=== PATIENT | male | born 1985 ===

== ENCOUNTER 2018-09-27 09:28 | Outpatient (CLI) | payer OTHER | END 2018-09-27 09:29 | disposition home or self-care (01) | LOC: C.PAT 09:28 | DX: M51.27 Other intervertebral disc displacement, lumbosacral region (principal); M54.5 Low back pain; M54.16 Radiculopathy, lumbar region ==

== ENCOUNTER 2018-10-18 07:30 | Inpatient (IN) | payer OTHER ==
[2018-10-18] MEDS ORDERED: Absorbable Gelatin Sponge Size 100 ONE (10:04)
[2018-10-18] MEDS ORDERED: Bupivacaine-Epi 0.5%-1:200,000 PF Inj ONE (10:05)
[2018-10-18] MEDS ORDERED: Bacitracin Ointment 30 GM TUBE ONE (10:05)
[2018-10-18] MEDS ORDERED: Thrombin Topical 5,000 Int Units Spray Kit ONE (10:05)
[2018-10-18] MEDS ORDERED: Lidocaine/Epinephrine 1% 1:100000 10 ML IJ ONE (10:05)
[2018-10-18] MEDS ORDERED: ceFAZolin 1 gm in NS 2 GM/200 ML BAG IVPB ONE (10:06)
[2018-10-18] MEDS ORDERED: Bacitracin 150,000 UNIT in Sodium Chloride 0.9% Irrig 3,000 ML IR SCH (10:11)
[2018-10-18] MEDS ORDERED: Propofol 10 mg/ml 2,000 MG/200 ML VIAL ONE (11:13)
[2018-10-18] MEDS ORDERED: Midazolam 2 MG/2 ML VIAL ONE (11:30)
[2018-10-18] MEDS ORDERED: Propofol 10 mg/ml Inj (20 ML) ONE (11:30)
[2018-10-18] MEDS ORDERED: Succinylcholine Chloride 20 mg/ml Syr (5 ml) IV ONE (11:33)
[2018-10-18] MEDS ORDERED: Sodium Chloride 0.9% 20 ML IV ONE (12:17)
[2018-10-18] MEDS: Bupivacaine Liposomal Inj 20 ml INJ ONE ×2 (13:00→15:08)
[2018-10-18] MEDS: Bupivacaine HCl 0.5% PF (10 ml) Inj ONE ×2 (13:00→15:08)
[2018-10-18] MEDS ORDERED: Rocuronium 10 mg/ml (5 ml) ONE (13:55)
[2018-10-18] MEDS ORDERED: Propofol 10 mg/ml 1,000 MG/100 ML VIAL ONE (14:40)
[2018-10-18] MEDS ORDERED: Neostigmine 1:1000 (1 mg/ml) Inj ONE (15:34)
[2018-10-18] MEDS ORDERED: Naloxone 0.4 mg/ml Inj (Adult) IVP PRN (16:01)
[2018-10-18] MEDS: HYDROmorphone 0.5 mg/0.5 ml ISec IVP PRN ×4 (16:07→17:24)
[2018-10-18] MEDS ORDERED: Lactated Ringer's 1,000 ML IV ONE (17:30)
[2018-10-18] MEDS: Potassium Ch 20mEq in D5-1/2NS 1,000 ML IV SCH (18:45)
[2018-10-19 01:57] VITALS: RESP 20
[2018-10-19] MEDS: Potassium Ch 20mEq in D5-1/2NS 1,000 ML IV SCH ×3 (05:25→22:00)
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
--- NOTE | 2018-10-19 09:46 | CP.PCM.PN ---
Subjective - Date & Time of Evaluation Date of Evaluation: 10/19/18 Time of Evaluation: 09:43 - Subjective Subjective: doing well has post op back pain good st no numbness in legs will change to oral meds Objective - Vital Signs/Intake and Output Vital Signs (last 24 hours): Temp Pulse Resp BP Pulse Ox 98.8 F 114 H 20 124/78 97 10/19/18 09:21 10/19/18 09:21 10/19/18 09:21 10/19/18 09:21 10/19/18 09:21 Intake and Output: 10/19/18 10/19/18 06:59 18:59 Intake Total 1160 Output Total 1200 Balance -40 - Medications Medications: Current Medications Acetaminophen (Tylenol 325mg Tab) 650 mg PO Q6 PRN PRN Reason: Fever >100.4 F Docusate Sodium (Colace) 100 mg PO BID [facility] Last Admin: 10/18/18 19:06 Dose: Not Given Hydromorphone/Sodium Chloride (Dilaudid Photographic Process Attendant) 6 mg IV Q4H PRN; Protocol PRN Reason: Pain, moderate (4-7) Last Admin: 10/19/18 06:51 Dose: 6 mg Potassium Chloride/Dextrose/Sod Cl (Potassium Chl 20 Meq In D5-1/2ns) 1,000 mls @ 100 mls/hr IV .Q10H [facility] Last Admin: 10/19/18 05:25 Dose: 100 mls/hr Influenza Virus Vaccine (Flucelvax Quad [id number] Syr) 60 mcg IM .ONCE ONE Stop: 10/20/18 10:01 Naloxone HCl (Narcan) 0.1 mg IVP Q2M PRN PRN Reason: apnea Pneumococcal Polyvalent Vaccine (Pneumovax 23 Vaccine) 0.5 ml IM .ONCE ONE Stop: 10/20/18 10:01
[2018-10-19] MEDS ORDERED: oxyCODONE 20 mg ER Tab (oxyCONTIN) PO SCH ×2 (10:00→18:00)
--- NOTE | 2018-10-19 13:03 | RAD ---
Date of service: 10/18/2018 PROCEDURE: Intraoperative Fluoroscopy. HISTORY: L5/S1 DISC DEGENERATION FINDINGS: Fluoroscopic assistance was provided for lumbar spinal surgery. Please refer to the operative report from LISSA Patino.
[2018-10-19] MEDS ORDERED: Simethicone 80 mg Chewtab PO ONE (15:30)
[2018-10-19] MEDS: Oxycodone/Acetaminophen 5/325 mg Tab PO PRN ×2 (16:53→21:29)
[2018-10-19] MEDS: oxyCODONE 20 mg ER Tab (oxyCONTIN) PO SCH (18:24)
[2018-10-20] MEDS: Potassium Ch 20mEq in D5-1/2NS 1,000 ML IV SCH ×3 (02:00→18:04)
[2018-10-20] MEDS: oxyCODONE 20 mg ER Tab (oxyCONTIN) PO SCH ×2 (06:04→18:01)
[2018-10-20] MEDS ORDERED: Pneumococcal 23-Valent Vaccine IM ONE (10:00)
[2018-10-20] MEDS ORDERED: Influenza Vaccine 60 mcg/0.5 mL SYR (4YR UP) IM ONE (10:00)
[2018-10-20] MEDS: Oxycodone/Acetaminophen 5/325 mg Tab PO PRN ×2 (12:40→22:48)
[2018-10-20] MEDS ORDERED: Magnesium Hydroxide Susp 30 ml UD PO ONE (13:06)
--- NOTE | 2018-10-20 13:08 | CP.PCM.PN ---
Subjective - Date & Time of Evaluation Date of Evaluation: 10/20/18 Time of Evaluation: 13:06 - Subjective Subjective: POD 2 doing well amb with PT 5/5 throughout sens intact MOM P awaiting t to rehab Objective - Vital Signs/Intake and Output Vital Signs (last 24 hours): Temp Pulse Resp BP Pulse Ox 98.3 F 96 H 20 105/67 97 10/20/18 09:10 10/20/18 09:10 10/20/18 09:10 10/20/18 09:10 10/20/18 09:10 Intake and Output: 10/20/18 10/20/18 06:59 18:59 Intake Total 1200 Balance 1200 - Medications Medications: Current Medications Acetaminophen (Tylenol 325mg Tab) 650 mg PO Q6 PRN PRN Reason: Fever >100.4 F Last Admin: 10/20/18 01:56 Dose: 650 mg Docusate Sodium (Colace) 100 mg PO BID [facility] Last Admin: 10/20/18 10:38 Dose: 100 mg Hydromorphone/Sodium Chloride (Dilaudid Pump Station Operator) 6 mg IV Q4H PRN; Protocol PRN Reason: Pain, moderate (4-7) Last Admin: 10/19/18 06:51 Dose: 6 mg Potassium Chloride/Dextrose/Sod Cl (Potassium Chl 20 Meq In D5-1/2ns) 1,000 mls @ 100 mls/hr IV .Q10H [facility] Last Admin: 10/20/18 08:33 Dose: Not Given Magnesium Hydroxide (Milk Of Magnesia) 30 ml PO ONCE ONE Stop: 10/20/18 13:07 Naloxone HCl (Narcan) 0.1 mg IVP Q2M PRN PRN Reason: apnea Oxycodone HCl (Oxycontin Extended Release Tab) 20 mg PO Q12H [facility] Last Admin: 10/20/18 06:04 Dose: 20 mg Oxycodone/Acetaminophen (Percocet 5/325 Mg Tab) 1 tab PO Q4H PRN PRN Reason: Pain, Mild (1-3) Stop: 10/22/18 09:48 Last Admin: 10/20/18 12:40 Dose: 1 tab
[2018-10-21] MEDS: oxyCODONE 20 mg ER Tab (oxyCONTIN) PO SCH ×3 (05:55→18:52)
--- NOTE | 2018-10-21 19:41 | CP.PCM.PN ---
Subjective - Date & Time of Evaluation Date of Evaluation: 10/21/18 Time of Evaluation: 19:40 - Subjective Subjective: doing well no sig complaints neuro stable dsg c and d awaiting trans to rehab (Tue) Objective - Vital Signs/Intake and Output Vital Signs (last 24 hours): Temp Pulse Resp BP Pulse Ox 99.5 F 99 H 20 132/84 98 10/21/18 15:55 10/21/18 15:55 10/21/18 15:55 10/21/18 15:55 10/21/18 15:55 - Medications Medications: Current Medications Acetaminophen (Tylenol 325mg Tab) 650 mg PO Q6 PRN PRN Reason: Fever >100.4 F Last Admin: 10/20/18 01:56 Dose: 650 mg Docusate Sodium (Colace) 100 mg PO BID [facility] Last Admin: 10/21/18 18:52 Dose: 100 mg Naloxone HCl (Narcan) 0.1 mg IVP Q2M PRN PRN Reason: apnea Oxycodone HCl (Oxycontin Extended Release Tab) 20 mg PO Q12H [facility] Last Admin: 10/21/18 18:52 Dose: 20 mg Oxycodone/Acetaminophen (Percocet 5/325 Mg Tab) 1 tab PO Q4H PRN PRN Reason: Pain, Mild (1-3) Stop: 10/22/18 09:48 Last Admin: 10/20/18 22:48 Dose: 1 tab
[2018-10-21] MEDS: Oxycodone/Acetaminophen 5/325 mg Tab PO PRN (21:19)
[2018-10-22] MEDS: oxyCODONE 20 mg ER Tab (oxyCONTIN) PO SCH ×2 (05:57→18:22)
[2018-10-23] MEDS: oxyCODONE 20 mg ER Tab (oxyCONTIN) PO SCH ×2 (05:32→17:45)
--- NOTE | 2018-10-23 11:18 | CP.PCM.PN ---
Subjective - Date & Time of Evaluation Date of Evaluation: 10/23/18 Time of Evaluation: 11:17 - Subjective Subjective: SPINE - POD #5 Pt OOB in chair. No complaints. VSS Afeb. Neuro grossly intact Plan: Rehab transfer when bed available Objective - Vital Signs/Intake and Output Vital Signs (last 24 hours): Temp Pulse Resp BP Pulse Ox 98.8 F 103 H 20 117/70 99 10/23/18 09:11 10/23/18 09:11 10/23/18 09:11 10/23/18 09:11 10/23/18 09:11 Intake and Output: 10/23/18 10/23/18 06:59 18:59 Output Total 700 Balance -700 - Medications Medications: Current Medications Acetaminophen (Tylenol 325mg Tab) 650 mg PO Q6 PRN PRN Reason: Fever >100.4 F Last Admin: 10/20/18 01:56 Dose: 650 mg Docusate Sodium (Colace) 100 mg PO BID [facility] Last Admin: 10/23/18 10:01 Dose: 100 mg Naloxone HCl (Narcan) 0.1 mg IVP Q2M PRN PRN Reason: apnea Oxycodone HCl (Oxycontin Extended Release Tab) 20 mg PO Q12H [facility] Last Admin: 10/23/18 05:32 Dose: 20 mg
[2018-10-23] MEDS ORDERED: oxyCODONE 20 mg ER Tab (oxyCONTIN) PO SCH (17:43)
[2018-10-24 01:45] VITALS: O2SAT 98
[2018-10-24] MEDS ORDERED: oxyCODONE 20 mg ER Tab (oxyCONTIN) PO SCH (06:00)
[2018-10-24] MEDS: oxyCODONE 20 mg ER Tab (oxyCONTIN) PO SCH ×2 (06:27→17:13)
[2018-10-24 16:23] VITALS: BP 150/97; PULSE 87; TEMP 98.3
--- NOTE | 2018-10-30 07:41 | OP ---
PROCEDURE DATE: 10/18/2018 PREOPERATIVE DIAGNOSIS: Disk derangement, L5-S1. POSTOPERATIVE DIAGNOSIS: Disk derangement, L5-S1. OPERATION: 1. Posterior lumbar interbody and lateral fusion, L5-S1. 2. Use of nonsegmental spinal instrumentation. 3. Intervertebral devices. 4. Use of autograft by means of bone marrow aspiration. SURGEON: Titi Silverman MD CO-SURGEON: Tunde Mackenzie MD ANESTHESIA: General endotracheal tube intubation. DESCRIPTION OF PROCEDURE: The patient was brought to the operating room, and general anesthesia was achieved. Intravenous antibiotics were administered, and spinal cord monitor leads were placed throughout the patient's body. Real-time monitoring was done by a desktop technician in the room. Remote monitoring was done by a physician as well. Sequential compression boots were placed to each of the patient's legs. Once the antibiotics were administered, a Adhikari catheter was inserted. The patient was then gently transferred onto the operating table and placed prone on a Edwardo frame, keeping his abdomen free from pressure anteriorly. Care was taken to protect the elbows and knees from pressure points. A sterile drape was used to seal off the patient's perineal region from the operative field. His back was sterilely prepped and draped. The level of the incision was noted under fluoroscopy and infiltrated lidocaine with epinephrine. The incision was made sharply in the midline, taken out subcutaneous tissue using sharp and blunt dissection. Hemostasis achieved using electrocautery. The fascia was divided and stripped laterally off the spinous processes and lamina out to the level of the L5-S1 facet joint and the L5 transverse process on each side as well as the sacral ala on each side. Fluoroscopic views were taken which confirmed we were at the appropriate level. At that time, a trocar was placed in the posterior right ilium, and bone marrow aspirate was obtained. This was passed off sterilely to the desktop technician who processed it through the harvest system and then returned the collected mesenchymal stem cells to the OR table. These were used to soak strips and cubes of Conform as well as process with the IC chamber bone. The thrombinated Gelfoam powder was used for hemostasis at the iliac donor site for the marrow. The Leksell rongeur was used to remove the spinous processes and thin down the lamina. Laminectomy was then carried out with Kerrison rongeurs in a caudal and cephalad fashion. This was done in the midline and taken out laterally to each side, widening up at the level of the disk space to be able to allow safe passages of the intervertebral devices subsequently. A needle was placed on L5-S1 disk and again fluoroscopic view confirmed we were at the appropriate level. At that time, the thecal sac was gently retracted, and the annulus was sharply incised. Disk material was removed with pituitary rongeur and endplate sergio up to including a size-11. Ring and spoon curettes were used as well until the endplates were cleared off. We then moved to the right side where in a similar fashion the annulus was incised and any remaining disk material was removed with a combination of the endplate sergio and a pituitary rongeur along with the ring and spoon curettes. After disk space was emptied, the bone grafting substrate which again consisted the patient's laminar bone, the IC chamber bone, and Optium gel and Optium putty were packed into the disk space along with the marrow-soaked cubes of Conform. A 9 x 11 graft packed cage was then tamped into place and countersunk. We moved back to the left side and inspected for any further disk material and then used the bone grafting substrate as well as the marrow-soaked cubes of Conform and packed that into the disk space. The other 9 x 11 graft packed cage was tamped into place and countersunk. Everything visually appeared to be in good position. Baseline stimulation of the nerve roots was done to confirm functioning of the monitoring as well laterality. A high-speed drill was used to decorticate the transverse process of L5 on each side along the sacral ala and the L5-S1 facet joint. Under fluoroscopic guidance, the entry point for the right L5 pedicle was made, and the gearshift tool was used to create a channel through the pedicle. Bony integrity was confirmed with a ball-tip probe, and a 6.0 x 45 mm Expedium screw was inserted. Similar technique was used on the left side with the drill, gearshift tool, the ball-tip probe and another 45 x 6.0 Expedium screw placed. Stimulation of the gearshift tool on each side as well as the shank and top of each screw revealed no electrophysiologic abnormalities. We then moved down the sacral level where again under fluoroscopic guidance, the entry point was noted and created with the high-speed drill, and the gearshift tool was used to create a channel for the screw. Once bony integrity was confirmed, a 40 x 7.0 Expedium screw was inserted. Similar technique was used on the opposite side, and again a 7.0 x 40 mm screw was inserted. Stimulation on each side revealed no electrophysiologic abnormalities. AP view was taken which showed the screws to be in good position. The midline was irrigated with antibiotic solution. Hemostasis was achieved with bipolar cautery and thrombinated Gelfoam powder. A large piece of solid Gelfoam was used to cover the exposed neural elements. A 40-mm precut lordotic darrlel was used to connect the two screws on the left and 45-mm darrell on the right. The caps were applied and appropriately tightened and torqued. A #7 Matrix CrossLink was then used to connect the two rods to add rotational stability. The remaining bone grafting substrate and strip marrow-soaked strips of Conform were packed laterally to bridge the decorticated surfaces. Final AP and lateral views showed good position of the hardware and intervertebral devices. The wound was then closed in layers interrupted sutures of 0 Vicryl for the muscle and fascia. The subcutaneous tissue was copiously irrigated with antibiotic solution, and 20 mL of 0.5% Marcaine as well as 20 mL of Exparel diluted with 20 mL of saline were injected into paraspinal tissues to help with postoperative pain relief. The subcutaneous tissue was then closed interrupted sutures of 2-0 Vicryl, and the skin was approximated with a running subcuticular suture of 3-0 Monocryl. Steri-Strips and sterile dressing were applied. The patient was gently transferred back onto his bed in supine position and awakened and extubated. He was taken to recovery room in stable condition. He tolerated the procedure well. Estimated blood loss was 500 mL. He received 2500 mL of crystalloid along with 210 mL back from the Cell Saver. He had a urine output of 100 mL over the course of the procedure. He was actively moving all extremities at the time of his transfer. No permanent electrophysiologic abnormalities were noted at the completion of the case. Titi Silverman MD
--- NOTE | 2018-11-03 06:00 | DS ---
This patient was admitted on 10/18/2018 and discharged on 10/24/2018. This patient was admitted for an L5-S1 posterior lumbar interbody fixation and fusion. He underwent the surgery uneventfully the day of admission. Postoperatively, he had the anticipated significant perioperative pain. He was treated for some time with S[employer]. He was seen by Physiotherapy. He was mobilized, began to ambulate. He does have stairs at home and therefore could not be discharged very expeditiously, but ultimately was cleared by PT. He was switched to oral pain medications. Discharged home. He will be followed up in my office. Tunde Mackenzie MD
== END 2018-10-24 18:23 | disposition home or self-care (01) | DRG 460 ==
LOC: C.9S 08:58 → C.6T 19:21
PROVIDERS: ADMIT Neurological Surgery; ATTEND Neurological Surgery
PROC: 0SB40ZZ Excision of Lumbosacral Disc, Open Approach (ICD-10-PCS; 2018-10-18)
PROC: 07DR3ZZ Extraction of Iliac Bone Marrow, Percutaneous Approach (ICD-10-PCS; 2018-10-18)
PROC: 0SG3071 Fusion of Lumbosacral Joint with Autologous Tissue Substitute, Posterior Approach, Posterior Column, Open Approach (ICD-10-PCS; principal; 2018-10-18 11:30)
DX: M51.17 Intervertebral disc disorders with radiculopathy, lumbosacral region (principal); M48.07 Spinal stenosis, lumbosacral region; G89.18 Other acute postprocedural pain; W20.8XXS Other cause of strike by thrown, projected or falling object, sequela; Y93.H3 Activity, building and construction